=== PATIENT | female | born 1975 | race Caucasian/White ===

== ENCOUNTER 2017-05-20 06:47 | Emergency (ER) | payer MEDICAID, OTHER ==
[~2017-05-20] VITALS: Ht 157.5 cm; Wt 70.0 kg
[2017-05-20 06:50] VITALS: Ht 157.5 cm; Wt 70.0 kg
[2017-05-20] MEDS ORDERED: HYDR-906 PO (08:01)
[2017-05-20] MEDS ORDERED: IBUP-1542 PO (08:01)
[2017-05-20] MEDS ORDERED: CLIN-73 PO (08:01)
[2017-05-20] MEDS ORDERED: HYDROCODONE/APAP (5/325) TAB PO ONE (08:30)
--- NOTE | 2017-05-20 19:19 | ERD ---
ER Documentation Chief Complaint Chief Complaint ABCESS ON VAGINAL AREA X 4 DAYS HPI Patient is a 41-year-old female presents to the ED for concerns of an abscess in her vaginal area. Patient states her symptoms are 4 days ago. Patient reports a small bump in her vaginal area. Patient states the pain is worse when walking and sitting down. Patient denies any bleeding or drainage. Patient denies any fevers, chills, nausea, vomiting, chest pain, shortness breath, abdominal pain, diarrhea, vaginal bleeding or LOC. Patient denies any dysuria, frequency or hematuria. Patient denies shaving the affected area. ROS All systems reviewed and are negative except as per history of present illness. Medications Home Meds Active Scripts Hydrocodone/Acetaminophen ([place] 5-325 Tablet) 1 Each Tablet, 1 TAB PO Q6H Y for PAIN, #7 TAB Prov:CHARITY HANSEN PA-C 05/20/17 Ibuprofen* (Motrin*) 600 Mg Tab, 600 MG PO Q6, #30 TAB Prov:CHARITY HANSEN PA-C 05/20/17 Clindamycin Hcl* (Clindamycin Hcl*) 300 Mg Capsule, 300 MG PO TID for 7 Days, CAP Prov:CHARITY HANSEN PA-C 05/20/17 Allergies Allergies: Coded Allergies: Penicillins (Verified Allergy, Unknown, 04/03/07) PMhx/Soc Medical and Surgical Hx: pt denies Medical Hx, pt denies Surgical Hx Hx Alcohol Use: No Hx Substance Use: No Hx Tobacco Use: No Physical Exam Vitals Vital Signs Date Time Temp Pulse Resp B/P Pulse Ox O2 Delivery O2 Flow Rate FiO2 05/20/17 06:50 97.7 89 18 118/75 99 Physical Exam GENERAL: Well-developed, well-nourished female. Appears in no acute distress. HEAD: Normocephalic, atraumatic. EYES: Pupils are equally reactive bilaterally. EOMs grossly intact. No conjunctival erythema. NECK: Supple. No meningismus. LUNG: Clear to auscultation bilaterally. No rhonchi, wheezing, rales or coarse breath sounds. HEART: Regular rate and rhythm. No murmurs, rubs or gallops. ABDOMEN: Soft, nontender, and nondistended. Positive bowel sounds in all four quadrants. No rebound tenderness, no guarding. (-) McBurney's point tenderness. FEMALE GENITALIA: Exam was completed with a spark tester present. 1 cm circular mass noted in the patient's right labial fold. Minimal swelling. No warmth. Tender to palpation. Area is indurated. No fluctuance noted. EXTREMITIES: Equal pulses bilaterally. No peripheral clubbing, cyanosis or edema. No unilateral leg swelling. NEUROLOGIC: Alert and oriented. Moving all four extremities without any difficulty. Normal speech. Steady gait. SKIN: Normal color. Warm and dry. No rashes or lesions. Results 24 hrs Current Medications Medications (Trade) Dose Ordered Sig/Herb Route PRN Reason Start Time Stop Time Status Last Admin Dose Admin Acetaminophen/ Hydrocodone Bitart ([place] (5/325)) 1 tab ONCE ONCE PO 05/20/17 08:30 05/20/17 08:31 DC 05/20/17 08:26 Procedures/MDM ED COURSE: The patient was stable throughout ED course. I kept the patient and/or family informed of laboratory and diagnostic imaging results throughout the ED course. MEDICATIONS GIVEN: [place] Patient tolerated medication well with no adverse reactions. MEDICAL DECISION MAKING: This is a 42-year-old female presents for concerns of a lump in her vaginal area. Vital signs were reviewed. Patient was afebrile. Physical exam findings did reveal possible labial abscess however there is no fluctuance noted. Patient was advised to use warm compresses and return in 2 days for recheck. At that time we will assess if affected areas ready for incision and drainage. Patient will be given a prescription for clindamycin. Patient was advised to continue monitor symptoms closely and return for any new or worsening symptoms sooner. At this time, patient presentation is most consistent with a labial abscess/ Bartholin gland abscess.. Low suspicion for lipoma, deep space infection, UTI, pyelonephritis, laceration. Patient was nontoxic, non-ill- appearing prior to discharge. PRESCRIPTIONS: Ibuprofen, [place], clindamycin DISCHARGE: At this time, patient is stable for discharge and outpatient management. Patient was advised to apply warm compresses to the affected area. Patient was advised to return in 2 days for recheck. I have instructed the patient to follow-up with his/her primary care physician in 1-2 days. I have instructed the patient to promptly return to the ER for any new or worsening symptoms including increased pain, swelling, redness, warmth or fever. The patient and/ or family expressed understanding of and agreement with this plan. All questions were answered. Home care instructions were provided. Disclaimer: Inadvertent spelling and grammatical errors are likely due to EHR/ dictation software use and do not reflect on the overall quality of patient care. Also, please note that the electronic time recorded on this note does not necessarily reflect the actual time of the patient encounter. Departure Diagnosis: Primary Impression: Abscess of right genital labia Condition: Stable Patient Instructions: Abscess, Antiobiotic Treatment Only Referrals: [facility] YOU HAVE RECEIVED A MEDICAL SCREENING EXAM AND THE RESULTS INDICATE THAT YOU DO NOT HAVE A CONDITION THAT REQUIRES URGENT TREATMENT IN THE EMERGENCY DEPARTMENT. FURTHER EVALUATION AND TREATMENT OF YOUR CONDITION CAN WAIT UNTIL YOU ARE SEEN IN YOUR DOCTORS OFFICE WITHIN THE NEXT 1-2 DAYS. IT IS YOUR RESPONSIBILITY TO MAKE AN APPOINTMENT FOR FOLOW-UP CARE. IF YOU HAVE A PRIMARY DOCTOR --you should call your primary doctor and schedule an appointment IF YOU DO NOT HAVE A PRIMARY DOCTOR YOU CAN CALL OUR PHYSICIAN REFERRAL HOTLINE AT IF YOU CAN NOT AFFORD TO SEE A PHYSICIAN YOU CAN CHOSE FROM THE FOLLOWING [facility] [address] [facility]. [facility] [address] [facility] [address] [facility] [facility] [address] [facility]. [facility] [address] [facility]. [facility]. [address] [facility]. [facility] YOU HAVE RECEIVED A MEDICAL SCREENING EXAM AND THE RESULTS INDICATE THAT YOU DO NOT HAVE A CONDITION THAT REQUIRES URGENT TREATMENT IN THE EMERGENCY DEPARTMENT. FURTHER EVALUATION AND TREATMENT OF YOUR CONDITION CAN WAIT UNTIL YOU ARE SEEN IN YOUR DOCTORS OFFICE WITHIN THE NEXT 1-2 DAYS. IT IS YOUR RESPONSIBILITY TO MAKE AN APPOINTMENT FOR FOLOW-UP CARE. IF YOU HAVE A PRIMARY DOCTOR --you should call your primary doctor and schedule and appointment IF YOU DO NOT HAVE A PRIMARY DOCTOR YOU CAN CALL OUR PHYSICIAN REFERRAL HOTLINE AT . IF YOU CAN NOT AFFORD TO SEE A PHYSICIAN YOU CAN CHOSE FROM THE FOLLOWING [facility]: [facility] [address] [place] [address] [facility] [address] [place] [address] [facility] [address] [place] [address] [facility] URGENT CARE/SPECIALTIES [place] [address] [facility] [address] [place] [address] OFFICE FAX , [facility] [address] [place] [address] [facility] [address] [place] [address] [address], [facility] [address] [facility], [address], [facility] [address] [address] [address] [place] [address] [facility] [address] [place] [address] [address] [facility] [id number] - [place] [address] [address], [facility] [address] [address], [place] [address] [facility]. [address], [facility] [address] [address] [address] [place], [place] [id number] Additional Instructions: Return in 2 days for recheck. Put warm compresses to the affected area. Call your primary care doctor/ OBGYN TOMORROW for an appointment during the next 1-2 days.See the doctor sooner or return here if your condition worsens before your appointment time. CHARITY HANSEN PA-C May 20, 2017 19:19
== END 2017-05-20 08:34 | disposition home or self-care (01) ==
LOC: FTE 06:47
DX: N76.4 Abscess of vulva (principal)
CPT/HCPCS: Z7502; Z7610; 99284